=== PATIENT | male | born 1970 | race Caucasian/White ===

== ENCOUNTER 2016-09-21 20:04 | Emergency (ER) | payer MEDICAID, OTHER ==
[~2016-09-21] VITALS: Ht 180.3 cm; Wt 122.7 kg
[2016-09-21] MEDS ORDERED: METHOCARBAMOL 500 MG TABLET PO ONE (22:00)
[2016-09-21] MEDS ORDERED: KETOROLAC TROMETHAMINE 60 MG/2 ML VIAL IM ONE (22:00)
[2016-09-21 22:27] VITALS: BP 144/95
== END 2016-09-21 22:29 | disposition home or self-care (01) ==
LOC: EMS 20:06
DX: S39.012A Strain of muscle, fascia and tendon of lower back, initial encounter (principal); X58.XXXA Exposure to other specified factors, initial encounter; Y93.89 Activity, other specified; Y92.89 Other specified places as the place of occurrence of the external cause; Y99.8 Other external cause status
CPT/HCPCS: 96372; 99283; J1885